=== PATIENT | female | born 2000 | race Caucasian/White ===

== ENCOUNTER 2021-10-14 11:22 | Emergency (ER) | payer OTHER ==
[~2021-10-14 11:22] MED LIST: ANUSOL-HC CREAM30 GM PR; FEOSOL325 MG PO; NORCO 5-325 TA1 EACH PO
[2021-10-14 13:18] LABS: HEMOGLOBIN 12.4 gm/dl (12.3-15.3); RED BLOOD COUNT 4.19 M/UL (4.00-5.10); WHITE BLOOD COUNT 11.7 K/UL (4.5-11.0)
[2021-10-14 13:36] LABS: BUN/CREATININE RATIO 6 (0-10)
[2021-10-15] MEDS ORDERED: MACROBID 100 M100 M1 PO (18:00)
== END 2021-10-14 16:40 | disposition home or self-care (01) ==
LOC: ER1 11:22
PROVIDERS: Physician Assistant Medical
DX: O99.891 Other specified diseases and conditions complicating pregnancy (principal); R07.9 Chest pain, unspecified; R05.9 Cough, unspecified; R51.9 Headache, unspecified; Z3A.35 35 weeks gestation of pregnancy; Z20.822 Contact with and (suspected) exposure to COVID-19
CPT/HCPCS: 0240U; 80053; 81001; 82550; 82553; 84484; 85025; 85379; 93005; 99283; Q9967

== ENCOUNTER 2021-10-15 10:54 | Emergency (ER) | payer OTHER ==
[2021-10-15 15:42] LABS: HEMOGLOBIN 12.1 gm/dl (12.3-15.3); RED BLOOD COUNT 4.1 M/UL (4.00-5.10); WHITE BLOOD COUNT 11.3 K/UL (4.5-11.0)
[2021-10-15 16:09] LABS: BUN/CREATININE RATIO 6 (0-10)
[2021-10-15] MEDS ORDERED: MACROBID 100 M100 M1 PO (18:00)
== END 2021-10-15 18:17 | disposition home or self-care (01) ==
LOC: ER1 10:54
PROVIDERS: Emergency Medicine
DX: O99.891 Other specified diseases and conditions complicating pregnancy (principal); R06.00 Dyspnea, unspecified; O23.43 Unspecified infection of urinary tract in pregnancy, third trimester; Z20.822 Contact with and (suspected) exposure to COVID-19; Z3A.35 35 weeks gestation of pregnancy
CPT/HCPCS: ECHO; 78580; 80053; 81001; 82550; 82553; 83880; 84484; 85025; 93005; 93306; 99283; A9540

== ENCOUNTER 2021-10-15 18:46 | Outpatient (CLI) | payer OTHER ==
[~2021-10-15 18:46] MED LIST changes: +MACROBID 100 M100 M1 PO
== END 2021-10-15 20:47 | disposition home or self-care (01) ==
LOC: GENOP 18:46
DX: O99.891 Other specified diseases and conditions complicating pregnancy (principal); O99.013 Anemia complicating pregnancy, third trimester; O99.343 Other mental disorders complicating pregnancy, third trimester; R51.9 Headache, unspecified; D64.9 Anemia, unspecified; F42.9 Obsessive-compulsive disorder, unspecified; Z3A.35 35 weeks gestation of pregnancy
CPT/HCPCS: 59025

== ENCOUNTER 2021-10-17 17:54 | Outpatient (CLI) | payer OTHER ==
[2021-10-17 19:50] LABS: RED BLOOD COUNT 3.74 M/UL (4.00-5.10); WHITE BLOOD COUNT 9.8 K/UL (4.5-11.0)
[2021-10-17 20:09] LABS: BUN/CREATININE RATIO 8 (0-10)
[2021-10-18] MEDS ORDERED: PERCOCET 5/325 T1 EA PO (10:53)
[2021-10-18] MEDS ORDERED: BENZONATATE200 MG PO (10:53)
== END 2021-10-18 11:02 | disposition home or self-care (01) ==
LOC: GENOP 17:54
PROVIDERS: Obstetrics & Gynecology
DX: O16.3 Unspecified maternal hypertension, third trimester (principal); O99.513 Diseases of the respiratory system complicating pregnancy, third trimester; O99.013 Anemia complicating pregnancy, third trimester; O99.343 Other mental disorders complicating pregnancy, third trimester; D64.9 Anemia, unspecified; J06.9 Acute upper respiratory infection, unspecified; Z3A.35 35 weeks gestation of pregnancy; F42.9 Obsessive-compulsive disorder, unspecified
CPT/HCPCS: 80053; 81001; 82570; 85025; 96360; 96361; 96365; J0696; J7030

== ENCOUNTER 2021-11-13 05:25 | Inpatient (IN) | payer OTHER ==
[~2021-11-13] VITALS: Ht 165.1 cm; Wt 93.4 kg
[~2021-11-13 05:25] MED LIST changes: +BENZONATATE200 MG PO; +PERCOCET 5/325 T1 EA PO
[2021-11-13 06:01] LABS: RED BLOOD COUNT 4.14 M/UL (4.00-5.10); WHITE BLOOD COUNT 9.9 K/UL (4.5-11.0)
[2021-11-13] MEDS ORDERED: PRENATABS FA T1 EACH PO (06:09)
[2021-11-13] MEDS ORDERED: FEROSUL325 MG PO (06:09)
[2021-11-14 03:56] LABS: HEMOGLOBIN 9.6 gm/dl (12.3-15.3)
== END 2021-11-15 14:52 | disposition home or self-care (01) | DRG 788 ==
LOC: OB 05:25
PROVIDERS: ADMIT Obstetrics & Gynecology
PROC: 4A1HXCZ Monitoring of Products of Conception, Cardiac Rate, External Approach (ICD-10-PCS; 2021-11-13)
PROC: 4A1HXFZ Monitoring of Products of Conception, Cardiac Rhythm, External Approach (ICD-10-PCS; 2021-11-13)
PROC: 10D00Z1 Extraction of Products of Conception, Low, Open Approach (ICD-10-PCS; principal; 2021-11-13 07:30)
DX: O69.81X0 Labor and delivery complicated by cord around neck, without compression, not applicable or unspecified (principal); Z3A.39 39 weeks gestation of pregnancy; Z37.0 Single live birth; Z28.310 Unvaccinated for COVID-19
CPT/HCPCS: 36415; 81001; 85014; 85018; 85025; C9113; J0690; J1650; J1885; J2274; J2370; J2405; J2590; J3010